=== PATIENT | male | born 1955 | race Caucasian/White ===

== ENCOUNTER 2018-11-12 12:44 | Emergency (ER) | payer MEDICARE, BC ==
[~2018-11-12] VITALS: Ht 175.3 cm; Wt 95.3 kg
[~2018-11-12 12:44] MED LIST: AMLO1TAB15 PO; NEBI10TA2 PO; ROSU20TA2 PO
[2018-11-12 12:54] VITALS: BP 100/67
--- NOTE | 2018-11-12 13:56 | NUR ---
Patient discharged to home in stable condition. Written and verbal after care instructions given. Patient verbalizes understanding of instruction. Ambulatory Stable
== END 2018-11-12 13:55 | disposition home or self-care (01) ==
LOC: ER 12:44
DX: S93.492A Sprain of other ligament of left ankle, initial encounter (principal); I10 Essential (primary) hypertension; Z88.2 Allergy status to sulfonamides; Z60.2 Problems related to living alone; Z79.899 Other long term (current) drug therapy; W22.8XXA Striking against or struck by other objects, initial encounter; Y93.89 Activity, other specified; Y92.89 Other specified places as the place of occurrence of the external cause; Y99.8 Other external cause status
CPT/HCPCS: 73610-TC